=== PATIENT | male | born 1995 | race Caucasian/White ===

== ENCOUNTER 2017-02-25 21:36 | Emergency (ER) | payer OTHER ==
--- NOTE | 2017-02-25 22:05 | ED NURSING NOTES ---
Clinical Report - Nurses [facility] [address] [place] [address] 02/25/2017 21:40 Patient: MITCH MCKEON TRIAGE Triage time 21:45 Feb 25 2017. Acuity: LEVEL 4. Chief Complaint: LACERATION. Alert. No acute distress. LAZARUS COMA SCORE: Lazarus Coma Scale: 15- eyes open spontaneously (4); best verbal response- oriented x 4 (5); best motor response- obeys commands (6). --21:49 Ginny Clifford R.N. 21:45 02/25/17. BP: 150/81. HR: 77. O2 saturation: 97%. Temp: 98.6 F. Pain level now: 03/19. --21:49 Ginny Clifford R.N. Weight: 88.4 kg stated. Height/Length: 75 inches Per Patient. BMI: 24.4. --21:47 Ginny Clifford R.N. Medications None. --21:46 Ginny Clifford R.N. Allergies None. --21:46 Ginny Clifford R.N. History Arrived by private vehicle. Historian: patient. Accompanied by family. Location of injuries: tip of right middle finger. This occurred just prior to arrival. Treatment FURNACE SETTER: None. PAST MEDICAL HX: Tetanus status: unknown. Immunizations: status is unknown. SOCIAL HX: Never smoker. History of heavy drug use: marijuana. No alcohol use. No infectious disease exposure. SELF HARM ASSESSMENT: A self harm assessment was performed. The patient answered "no" to the question "Do you have thoughts of harming or killing yourself?". FALL RISK ASSESSMENT: Fall risk assessment completed. No fall risk identified. NUTRITIONAL RISK ASSESSMENT: The nutritional risk assessment revealed no deficiencies. FUNCTIONAL ASSESSMENT: Functional assessment: no impairments noted. LEARNING NEEDS ASSESSMENT: The learning needs assessment revealed no barriers. ABUSE ASSESSMENT: Abuse assessment: The patient was asked "Do you feel safe in your home?". SKIN INTEGRITY ASSESSMENT: Skin integrity risk assessment completed. No skin integrity risk identified. --21:49 Ginny Clifford R.N. Interventions ID band on patient. To room. --21:49 Ginny Clifford R.N. PHYSICAL ASSESSMENT Ambulatory to room. GENERAL / NEURO / PSYCH: Alert. Oriented X 4. Appears in no acute distress. RESPIRATORY: Respirations not labored. CVS: Capillary refill less than 2 seconds. GI / : Abdomen soft and nontender. EXTREMITIES: Extremities exhibit normal ROM. Neuro-vascular status intact to the extremity. SKIN: Skin is warm and dry. --21:49 Ginny Clifford R.N. NURSING PROGRESS NOTES Two patient identifiers checked. Call light placed in reach. Bed placed in lowest position. Brakes of bed on. --21:49 Ginny Clifford R.N. 22:35 02/25/2017 HKPXMBI-CBFWCX-QQYBP PERTUSSIS IM 0.5 mL given. (Lot#: [id number], expiration date: 07/17/2018, Groundwater Consultant: sanofi pasteur). Given in the left deltoid. --22:42 Ginny Clifford R.N. DISPOSITION / DISCHARGE Departure time: 22:39 Feb 25 2017. Condition at departure: unchanged. No learning barriers present. Discharge instructions provided and reviewed with the patient. Reviewed referral to a primary care physician. Patient verbalized understanding. Written instructions provided in [place]. The patient was discharged home and accompanied by parent. He left the Emergency Department ambulatory and via private vehicle. Parent driving. FALL RISK ASSESSMENT: Fall risk assessment completed. No fall risk identified. --22:39 Ginny Clifford R.N. Locked/Released at 02/25/2017 22:44 by Ginny Clifford R.N.
--- NOTE | 2017-02-25 22:05 | ED ORDER SUMMARY ---
..... Patient: MITCH MCKEON OrderSheet [facility] VisitID: [id number] [address] [place] [address] 21y, M Registration Date/Time: 02/25/2017 ORDER SHEET Weight: 88.4 kg (stated) Allergies: None GENERAL ORDERS: MEDICATION ORDERS: Vemfide-Rwltix-Lfogl Pertussis IM 0.5 mL (NOW) (22:04 02/25/2017 VALERIANOoatevandana) (22:42 Bin R.NFlory) IV FLUIDS: ORDER SHEET NOTES: [Electronically signed by Ginny Clifford R.N. (22:44 02/25/2017)] [Electronically signed by Carlton Ruby (23:19 02/25/2017)] [Electronically locked/signed by Ginny Clifford R.N. (22:44 02/25/2017)]
--- NOTE | 2017-02-25 22:05 | ED NURSING NOTES ---
Clinical Report - Nurses [facility] [address] [place] [address] 02/25/2017 21:40 Patient: MITCH MCKEON TRIAGE Triage time 21:45 Feb 25 2017. Acuity: LEVEL 4. Chief Complaint: LACERATION. Alert. No acute distress. LAZARUS COMA SCORE: Lazarus Coma Scale: 15- eyes open spontaneously (4); best verbal response- oriented x 4 (5); best motor response- obeys commands (6). --21:49 Ginny Clifford R.N. 21:45 02/25/17. BP: 150/81. HR: 77. O2 saturation: 97%. Temp: 98.6 F. Pain level now: 03/19. --21:49 Ginny Clifford R.N. Weight: 88.4 kg stated. Height/Length: 75 inches Per Patient. BMI: 24.4. --21:47 Ginny Clifford R.N. Medications None. --21:46 Ginny Clifford R.N. Allergies None. --21:46 Ginny Clifford R.N. History Arrived by private vehicle. Historian: patient. Accompanied by family. Location of injuries: tip of right middle finger. This occurred just prior to arrival. Treatment MANAGER ARCHITECTURAL: None. PAST MEDICAL HX: Tetanus status: unknown. Immunizations: status is unknown. SOCIAL HX: Never smoker. History of heavy drug use: marijuana. No alcohol use. No infectious disease exposure. SELF HARM ASSESSMENT: A self harm assessment was performed. The patient answered "no" to the question "Do you have thoughts of harming or killing yourself?". FALL RISK ASSESSMENT: Fall risk assessment completed. No fall risk identified. NUTRITIONAL RISK ASSESSMENT: The nutritional risk assessment revealed no deficiencies. FUNCTIONAL ASSESSMENT: Functional assessment: no impairments noted. LEARNING NEEDS ASSESSMENT: The learning needs assessment revealed no barriers. ABUSE ASSESSMENT: Abuse assessment: The patient was asked "Do you feel safe in your home?". SKIN INTEGRITY ASSESSMENT: Skin integrity risk assessment completed. No skin integrity risk identified. --21:49 Ginny Clifford R.N. Interventions ID band on patient. To room. --21:49 Ginny Clifford R.N. PHYSICAL ASSESSMENT Ambulatory to room. GENERAL / NEURO / PSYCH: Alert. Oriented X 4. Appears in no acute distress. RESPIRATORY: Respirations not labored. CVS: Capillary refill less than 2 seconds. GI / : Abdomen soft and nontender. EXTREMITIES: Extremities exhibit normal ROM. Neuro-vascular status intact to the extremity. SKIN: Skin is warm and dry. --21:49 Ginny Clifford R.N. NURSING PROGRESS NOTES Two patient identifiers checked. Call light placed in reach. Bed placed in lowest position. Brakes of bed on. --21:49 Ginny Clifford R.N. 22:35 02/25/2017 YZRHLPU-NOMKSA-VPAVB PERTUSSIS IM 0.5 mL given. (Lot#: [id number], expiration date: 07/17/2018, Dye Worker: sanofi pasteur). Given in the left deltoid. --22:42 Ginny Clifford R.N. DISPOSITION / DISCHARGE Departure time: 22:39 Feb 25 2017. Condition at departure: unchanged. No learning barriers present. Discharge instructions provided and reviewed with the patient. Reviewed referral to a primary care physician. Patient verbalized understanding. Written instructions provided in [place]. The patient was discharged home and accompanied by parent. He left the Emergency Department ambulatory and via private vehicle. Parent driving. FALL RISK ASSESSMENT: Fall risk assessment completed. No fall risk identified. --22:39 Ginny Clifford R.N. Locked/Released at 02/25/2017 22:44 by Ginny Clifford R.N.
--- NOTE | 2017-02-25 22:05 | ED ORDER SUMMARY ---
..... Patient: MITCH MCKEON OrderSheet [facility] VisitID: [id number] [address] [place] [address] 21y, M Registration Date/Time: 02/25/2017 ORDER SHEET Weight: 88.4 kg (stated) Allergies: None GENERAL ORDERS: MEDICATION ORDERS: Dqyyztu-Szvfzz-Bmvsn Pertussis IM 0.5 mL (NOW) (22:04 02/25/2017 VALERIANOoatevandana) (22:42 Bin R.NFlory) IV FLUIDS: ORDER SHEET NOTES: [Electronically signed by Ginny Clifford R.N. (22:44 02/25/2017)] [Electronically signed by Carlton Ruby (23:19 02/25/2017)] [Electronically locked/signed by Ginny Clifford R.N. (22:44 02/25/2017)]
--- NOTE | 2017-02-25 22:05 | ED CLINICAL REPORT ---
Clinical Report - Physicians/Mid Levels [facility] [address] [place] [address] 02/25/2017 21:40 Patient: MITCH MCKEON Time Seen: 21:42 Feb 25 2017. Arrived- By private vehicle. Historian- patient. HISTORY OF PRESENT ILLNESS Chief Complaint: Injury to the right middle finger. The injury happened 2 - 3 days ago. Occurred at home. ( patient lacerated his right middle finger while working on his car. he says he immediately glued shutwith superglue. mom is concerned as it now appears to be bulging out from the cut area.). The patient sustained a laceration. Patient is not experiencing pain. No other injury. REVIEW OF SYSTEMS The patient sustained a laceration. No swelling, tingling, numbness, weakness or foreign body. All systems otherwise negative, except as recorded above. PAST HISTORY See nurses notes. No history of heart disease, lung disease or renal disease. The patient's dominant hand is the right. He has not had a prior injury to the same area. Last tetanus immunization was more than 10 years ago. SOCIAL HISTORY Never smoker. No alcohol use. ADDITIONAL NOTES The nursing notes have been reviewed. PHYSICAL EXAM Head: Head atraumatic. ENT: Nose normal. Pharynx normal. Neck: Normal inspection. No decreased ROM in the neck. Respiratory: No respiratory distress. Back: Normal inspection. ROM normal. Skin: Skin warm and dry. Extremities: Tip of right middle finger: mild tenderness and 1.0 cm laceration; nail avulsed; tip amputation present; exposed bone; loss of the nail bed. No erythema or swelling. Neuro: Oriented X 3. No motor deficit. No sensory deficit. PROGRESS AND PROCEDURES Course of Care: Patient's finger does not appear to be significantly infected although that is the concern. long discussion with patient and mother. don't generally recommend closure with superglue but in this case I don't think it's worse opening up as there is no obvious infection. Recommended continued watchful waiting. If he develops any pain or redness then start antibiotics and return here for reevaluation. We will update his tetanus now. Discharge decision based on the following: patient's condition is stable; clinical impression is consistent with outpatient treatment. CLINICAL IMPRESSION Single deep laceration to the right middle finger. Delayed treatment. INSTRUCTIONS Protect wound and keep wound area clean. Keep wounds dry. Do not work with right hand for three days. No dietary restrictions. Warnings: COMPLICATIONS: Complications from this condition include: possible infection and possible injury to a tendon. INFECTION: Watch for signs of infection (increasing heat and redness, pus-like drainage, swelling, or increased pain). Return or see your doctor if these signs occur. It is important to follow up with a physician for further evaluation and treatment. INFECTION: Watch for signs of infection (increasing heat and redness, pus-like drainage, swelling, or increased pain). Return or see your doctor if these signs occur. TETANUS: You were given a tetanus shot during your visit. Make a note for future reference. GENERAL WARNINGS: Return or contact your physician immediately if your condition worsens or changes unexpectedly, if not improving as expected, or if other problems arise. Specifically return if pain worsens. Prescription Medications: Cephalexin 500 mg: take 1 capsule orally every 6 hours for 7 days. No refill. OTC Medications: Motrin (available over the counter): take according to label instructions. Follow-up: Follow up with your doctor as needed. Understanding of the discharge instructions verbalized by patient and parent. (Electronically signed by Carlton Ruby, 02/25/2017 23:19)
--- NOTE | 2017-02-25 23:20 | ED MAR SUMMARY ---
..... Medication Administration Record [facility] [address] [place] [address] Patient: MITCH MCKEON Visit ID: [id number] 21y, M Weight: 88.4 kg Height/Length: 75 in BMI: 24.4 ALLERGIES: None Given 22:35 02/25/2017 Ginny Clifford R.N. Medication Administered: WHUHXSL-SIFHET-HKNCE PERTUSSIS [IM], Dose: 0.5 mL IM. Medication Ordered: Xfnehjq-Npzueo-Bumps Pertussis IM 0.5 mL (NOW).
--- NOTE | 2017-02-25 23:20 | ED MED RECONCILIATION SUMMARY ---
Patient: MITCH MCKEON Medication Reconciliation Report [facility] VisitID: [id number] [address] [place] [address] 21y, M Registration Date/Time: 02/25/2017 Weight: 88.4 kg Height/Length: 75 in. BMI: 24.4 ALLERGIES: None The patient's Home Medications are listed below: NONE. The source(s) of the original Home Medication information: Not obtained. The following Medications were given to the patient in the Emergency Department: UNWBDZK-BICUKD-AEZFE PERTUSSIS [IM] IM 0.5 mL, administered: 02/25/2017 10:35:00 PM The following Medications were prescribed to the patient: Motrin (available over the counter): take according to label instructions. -- Carlton Ruby Cephalexin 500 mg: take 1 capsule orally every 6 hours for 7 days. No refill. -- Carlton Ruby
--- NOTE | 2017-02-25 23:20 | ED MED RECONCILIATION SUMMARY ---
Patient: MITCH MCKEON Medication Reconciliation Report [facility] VisitID: [id number] [address] [place] [address] 21y, M Registration Date/Time: 02/25/2017 Weight: 88.4 kg Height/Length: 75 in. BMI: 24.4 ALLERGIES: None The patient's Home Medications are listed below: NONE. The source(s) of the original Home Medication information: Not obtained. The following Medications were given to the patient in the Emergency Department: GROTKZA-VQSNQE-LLWCF PERTUSSIS [IM] IM 0.5 mL, administered: 02/25/2017 10:35:00 PM The following Medications were prescribed to the patient: Motrin (available over the counter): take according to label instructions. -- Carlton Ruby Cephalexin 500 mg: take 1 capsule orally every 6 hours for 7 days. No refill. -- Carlton Ruby
--- NOTE | 2017-02-25 23:20 | ED DISCHARGE INSTRUCTIONS ---
Patient: MITCH MCKEON General Instructions [facility] VisitID: [id number] [place] [address] 21y, M Registration Date/Time: 02/25/2017 Single deep laceration to the right middle finger. Delayed treatment. INSTRUCTIONS Protect wound and keep wound area clean. Keep wounds dry. Do not work with right hand for three days. No dietary restrictions. Warnings: COMPLICATIONS: Complications from this condition include: possible infection and possible injury to a tendon. INFECTION: Watch for signs of infection (increasing heat and redness, pus-like drainage, swelling, or increased pain). Return or see your doctor if these signs occur. It is important to follow up with a physician for further evaluation and treatment. INFECTION: Watch for signs of infection (increasing heat and redness, pus-like drainage, swelling, or increased pain). Return or see your doctor if these signs occur. TETANUS: You were given a tetanus shot during your visit. Make a note for future reference. GENERAL WARNINGS: Return or contact your physician immediately if your condition worsens or changes unexpectedly, if not improving as expected, or if other problems arise. Specifically return if pain worsens. Prescription Medications: Cephalexin 500 mg: take 1 capsule orally every 6 hours for 7 days. No refill. OTC Medications: Motrin (available over the counter): take according to label instructions. Follow-up: Follow up with your doctor as needed. Understanding of the discharge instructions verbalized by patient and parent. ADDITIONAL INFORMATION Laceration, Extremity (Sutures, Archer, Or Tape) A laceration is a cut through the skin. This will usually require stitches (sutures) or km if it is deep. Minor cuts may be treated with surgical tape closures. Home care The following guidelines will help you care for your laceration at home: Keep the wound clean and dry. If a bandage was applied and it becomes wet or dirty, replace it. Otherwise, leave it in place for the first 24 hours, then change it once a day or as directed. If stitches or km were used, clean the wound daily: After removing the bandage, wash the area with soap and water. Use a wet cotton swab to loosen and remove any blood or crust that forms. After cleaning, keep the wound clean and dry. Talk with your doctor before applying any antibiotic ointment to the wound. Reapply the bandage. You may remove the bandage to shower as usual after the first 24 hours, but do not soak the area in water (no swimming) until the stitches or km are removed. If surgical tape closures were used, keep the area clean and dry. If it becomes wet, blot it dry with a towel. The doctor may prescribe an antibiotic cream or ointment to prevent infection. Do not stop taking this medication until you have finished the prescribed course or the doctor tells you to stop. The doctor may also prescribe medications for pain. Follow the doctors instructions for taking these medications. If you have chronic liver or kidney disease or ever had a stomach ulcer or GI bleeding, talk with your doctor before using these medicines. Follow-up care Follow up with your health care provider. Most skin wounds heal within ten days. However, an infection may sometimes occur despite proper treatment. Therefore, check the wound daily for the signs of infection listed below. Stitches and km should be removed within 714 days. If surgical tape closures were used, you may remove them after 10 days, if they have not fallen off by then. Notify your doctor if you notice persistent numbness or weakness in the injured extremity. (Note:A radiologist will review any X-rays that were taken. We will notify you of any new findings that may affect your care.) When to seek medical care Get prompt medical attention if any of these occur: Increasing pain in the wound Redness, swelling, or pus coming from the wound Fever of 100.4F (38C) or higher, or as directed by your health care provider If stitches or km come apart or fall out before your next appointment If the surgical tape closures fall off within seven days, or the wound edges re-open Bleeding not controlled by direct pressure Laceration(Skin Glue) A laceration is a cut through the skin. You have a laceration that has been closed with a type of skin glue. Home Care Medications: Acetaminophen (Tylenol) or ibuprofen (Motrin, Advil) may be taken for pain, unless another pain medicine was prescribed. NOTE: If you have chronic liver or kidney disease or ever had a stomach ulcer or GI bleeding, talk with your doctor before using these medications. General Care: Keep the wound clean and dry. You may shower or bathe as usual, but do not use soaps, lotions, or ointments on the wound area. Do not scrub the wound. After bathing, pat the wound dry with a soft towel. If a bandage was applied and it becomes wet or dirty, replace it. Otherwise, change the bandage every 24 hours. Do not scratch, rub, or pick at the film. Do not place tape directly over the film. Do not apply liquids (such as peroxide), ointments, or creams to the wound while the film is in place. Most skin wounds heal without problems. However, an infection sometimes occurs despite proper treatment. Therefore, watch for the signs of infection listed below. Follow Up as directed by the doctor or our staff. The skin glue film will fall off naturally in 5 to 10 days. Get Prompt Medical Attention if any of the following occur: Signs of infection: Fever of 100.4F (38C) or higher, or as directed by your healthcare provider Increasing pain in the wound Increasing redness or swelling Pus coming from the wound Wound bleeds more than a small amount or bleeding doesnt stop Wound edges come apart You feel numbness or weakness in the wound area that doesnt go away Cephalexin Monohydrate Oral tablet What is this medicine? CEPHALEXIN (sef a SAIRA in) is a cephalosporin antibiotic. It is used to treat certain kinds of bacterial infections It will not work for colds, flu, or other viral infections. How should I use this medicine? Take this medicine by mouth with a full glass of water. Follow the directions on the prescription label. This medicine can be taken with or without food. Take your medicine at regular intervals. Do not take your medicine more often than directed. Take all of your medicine as directed even if you think you are better. Do not skip doses or stop your medicine early. Talk to your seafood processor regarding the use of this medicine in children. While this drug may be prescribed for selected conditions, precautions do apply. What side effects may I notice from receiving this medicine? Side effects that you should report to your doctor or health director day care center as soon as possible: allergic reactions like skin rash, itching or hives, swelling of the face, lips, or tongue breathing problems pain or trouble passing urine redness, blistering, peeling or loosening of the skin, including inside the mouth severe or watery diarrhea unusually weak or tired yellowing of the eyes, skin Side effects that usually do not require medical attention (report to your doctor or health director day care center if they continue or are bothersome): gas or heartburn genital or anal irritation headache joint or muscle pain nausea, vomiting What may interact with this medicine? probenecid some other antibiotics What if I miss a dose? If you miss a dose, take it as soon as you can. If it is almost time for your next dose, take only that dose. Do not take double or extra doses. There should be at least 4 to 6 hours between doses. Where should I keep my medicine? Keep out of the reach of children. Store at room temperature between 59 and 86 degrees F (15 and 30 degrees C). Throw away any unused medicine after the expiration date. What should I tell my health care provider before I take this medicine? They need to know if you have any of these conditions: kidney disease stomach or intestine problems, especially colitis an unusual or allergic reaction to cephalexin, other cephalosporins, penicillins, other antibiotics, medicines, foods, dyes or preservatives or trying to get breast-feeding What should I watch for while using this medicine? Tell your doctor or health director day care center if your symptoms do not begin to improve in a few days. Do not treat diarrhea with over the counter products. Contact your doctor if you have diarrhea that lasts more than 2 days or if it is severe and watery. If you have diabetes, you may get a false-positive result for sugar in your urine. Check with your doctor or health director day care center. You have been given the following additional information: Laceration, Extrem (Suture, Staple, Or Tape) Laceration, Extremity (Skin Glue) Cephalexin Monohydrate Oral tablet Do not work with right hand for three days. (Electronically signed by Carlton Ruby, 02/25/2017 23:19)
--- NOTE | 2017-02-25 23:20 | ED MAR SUMMARY ---
..... Medication Administration Record [facility] [address] [place] [address] Patient: MITCH MCKEON Visit ID: [id number] 21y, M Weight: 88.4 kg Height/Length: 75 in BMI: 24.4 ALLERGIES: None Given 22:35 02/25/2017 Ginny Clifford R.N. Medication Administered: INAKDTD-DCHHWY-DRXVU PERTUSSIS [IM], Dose: 0.5 mL IM. Medication Ordered: Twvlpby-Jomvon-Qdvyj Pertussis IM 0.5 mL (NOW).
== END 2017-02-25 22:40 | disposition home or self-care (01) ==
LOC: ED SRH 21:36
DX: S61.212A Laceration without foreign body of right middle finger without damage to nail, initial encounter (principal); W45.8XXA Other foreign body or object entering through skin, initial encounter; Y92.007 Garden or yard of unspecified non-institutional (private) residence as the place of occurrence of the external cause; Y99.8 Other external cause status; Z23 Encounter for immunization